=== PATIENT | female | born 1975 | race Hispanic/Latino ===

== ENCOUNTER 2025-03-05 07:08 | Day surgery (SDC) | payer OTHER ==
[2025-03-05] VITALS (11 sets, daily range): BP systolic 113–134; BP diastolic 51–66; PULSE 50–56; RESP 15–17; TEMP 97.1–97.7
[~2025-03-05] VITALS: Ht 162.6 cm; Wt 142.9 kg
[~2025-03-05 07:08] MED LIST: BISO1TAB98 PO; PHEN37.596 PO
[2025-03-05] MEDS ORDERED: NAPR-1194 PO (09:04)
[2025-03-05] MEDS: 0.9%NACL 1000ML 1,000 ML IV ONE (09:04)
== END 2025-03-05 11:26 | disposition home or self-care (01) ==
LOC: ENDO 07:08 → DAH 07:08 → ENDO 11:26
PROVIDERS: ATTEND Internal Medicine
DX: Z12.11 Encounter for screening for malignant neoplasm of colon (principal); R12 Heartburn; R07.0 Pain in throat; I10 Essential (primary) hypertension; E66.01 Morbid (severe) obesity due to excess calories; Z68.43 Body mass index [BMI] 50.0-59.9, adult; Z79.899 Other long term (current) drug therapy
CPT/HCPCS: 81025; 45378; J7030; J2704; A4620; A4215; A4223; A7002; A4222; A4221; A4663; A4606; G0121; J3490